=== PATIENT | male | born 1985 | race Caucasian/White ===

== ENCOUNTER 2019-06-09 22:54 | Emergency (ER) | payer BC ==
--- NOTE | 2019-06-09 23:00 | ED Physician Documentation ---
PD HPI HEENT - Stated complaint Stated Complaint: FB IN EAR/INSECT - History obtained from History obtained from: Patient - History of Present Illness Timing - onset: Today (just shortly [employer]. He was lying in bed and had a moth fly into ear. It is buzzing around and bothering eardrum. He tried to irrigate ear at home, but the bug continued to be in canal and fluttering.) Timing - details: Abrupt onset, Still present Location: Right ear Worsens: Position Associated symptoms: No: Congestion, Rhinorrhea, Facial swelling Similar symptoms before: Has not had sx before Review of Systems Ears: denies: Loss of hearing Nose: denies: Rhinorrhea / runny nose, Congestion Throat: denies: Sore throat Neurologic: denies: Generalized weakness, Focal weakness, Numbness, Near syncope PD PAST MEDICAL HISTORY - Past Medical History HEENT: None - Allergies Allergies/Adverse Reactions: Allergies Allergy/AdvReac Type Severity Reaction Status Date / Time amoxicillin AdvReac Unknown Verified 06/09/19 23:02 PD ED PE NORMAL - Vitals Vital signs reviewed: Yes - General General: Alert and oriented X 3, Well developed/nourished - HEENT HEENT: Moist mucous membranes, Pharynx benign. No: Ears normal (left is okay. right ear canal with moth looking insect deep in canal. The canal tissue appears okay. ) Results - Vitals Vitals: Oxygen O2 Source Room air Procedures - FB removal FB location: Ear FB removal preparation: Other (drops of proparacaine in right ear canal to fill it up and kep there with pt on left side, until the but was not moving. Then blotted the fluid and was able to grab the moth with alligator forceps without problems. No injury to the canal seen. TM mild erythema.) Departure - Departure Disposition: 01 Home, Self Care Clinical Impression: Ear foreign body Condition: Stable Record reviewed to determine appropriate education?: Yes Instructions: ED Foreign Body Ear Canal Follow-Up: Chaparro Kwok DO [Primary Care Provider] - Comments: You should be feeling okay with may be some slight irritation of the ear and decreased hearing for a day or so just from irritation of the eardrum. Recheck if not fully improved over a day or 2 or if any signs of infection develop such as drainage or redness. Discharge Date/Time: 06/09/19 23:43
[2019-06-09 23:02] VITALS: BP 134/74
== END 2019-06-09 23:43 | disposition home or self-care (01) ==
LOC: ED 22:54
DX: T16.1XXA Foreign body in right ear, initial encounter (principal); X58.XXXA Exposure to other specified factors, initial encounter
CPT/HCPCS: 69200; 99282

== ENCOUNTER 2024-07-23 07:42 | Outpatient (CLI) | payer BC ==
[2024-07-23 12:26] LABS: BASOPHILS % (AUTO) 0.8 %; EOSINOPHILS # (AUTO) 0.1 10^3/uL (0.0-0.7); EOSINOPHILS % (AUTO) 3.8 %; HCT - HEMATOCRIT 42.8 % (42.0-52.0); HGB - HEMOGLOBIN 14.8 g/dL (14.0-18.0); LYMPHOCYTES # (AUTO) 0.9 10^3/uL (1.5-3.5); LYMPHOCYTES % (AUTO) 37.4 %; MEAN CORPUSCULAR HEMOGLOBIN 33.9 pg (27.0-31.0); MEAN CORPUSCULAR HGB CONC 34.6 g/dL (32.0-36.0); MEAN CORPUSCULAR VOLUME 97.9 fL (80.0-94.0); MEAN PLATELET VOLUME 9.2 fL (7.4-11.4); MONOCYTES # (AUTO) 0.3 10^3/uL (0.0-1.0); MONOCYTES % (AUTO) 11.3 %; NEUTROPHILS # (AUTO) 1.1 10^3/uL (1.5-6.6); NEUTROPHILS % (AUTO) 46.7 %; PLT - PLATELET COUNT 209 10^3/uL (130-450); RED BLOOD COUNT 4.37 10^6/uL (4.70-6.10); RED CELL DISTRIBUTION WIDTH 11.6 % (12.0-15.0); WHITE BLOOD COUNT 2.4 x10^3/uL (4.8-10.8)
[2024-07-23 12:29] LABS: SLIDE REVIEW? Indicated
[2024-07-23 12:30] LABS: ESTIMATED AVERAGE GLUCOSE 88 mg/dL (70-100); HEMOGLOBIN A1c% 4.7 % (4.27-6.07)
[2024-07-23 12:42] LABS: PLATELET ESTIMATE, MANUAL NORMAL (130-450,000) (NORMAL); PLATELET MORPHOLOGY NORMAL APPEARANCE (NORMAL); RBC MORPHOLOGY (MULTIPLE) NORMAL APPEARANCE (NORMAL)
[2024-07-23 13:02] LABS: ALBUMIN 4.2 g/dL (3.2-5.5); ALBUMIN/GLOBULIN RATIO 1.8 (1.0-2.2); ALKALINE PHOSPHATASE 49 IU/L (42-121); ALT ALANINE AMINOTRANSFERASE 25 IU/L (10-60); AST ASPARTATE AMINOTRANSFERASE 29 IU/L (10-42); BILIRUBIN,TOTAL 0.9 mg/dL (0.2-1.0); BUN - BLOOD UREA NITROGEN 11 mg/dL (6-20); CALCIUM 9.2 mg/dL (8.5-10.3); CARBON DIOXIDE - CO2 29 mmol/L (21-32); CHLORIDE 105 mmol/L (101-111); CHOLESTEROL 168 mg/dL; CREATININE 0.8 mg/dL (0.6-1.3); GFR - MDRD 107 (>89); GLUCOSE 87 mg/dL (74-104); HDL CHOLESTEROL 83 mg/dL; LDL CHOLESTEROL,CALCULATED 43 mg/dL; LDL/HDL RATIO 0.5 (<3.6); POTASSIUM 3.9 mmol/L (3.5-4.5); SODIUM 141 mmol/L (135-145); TOTAL PROTEIN 6.5 g/dL (6.4-8.9); TRIGLYCERIDES 212 mg/dL; VLDL CHOLESTEROL 42 mg/dL
[2024-07-23 13:03] LABS: THYROID STIMULATING HORMONE 1.26 uIU/mL (0.34-5.60)
== END 2024-07-23 07:43 | disposition home or self-care (01) ==
LOC: LAB.N 07:42
PROVIDERS: ATTEND Physician Assistant
DX: R35.89 Other polyuria (principal); R35.1 Nocturia; R68.82 Decreased libido; Z13.9 Encounter for screening, unspecified
CPT/HCPCS: 36415; 80053; 80061; 83036; 83721; 84153; 84403; 84443; 85025

== ENCOUNTER 2024-07-23 07:47 | Outpatient (CLI) | payer BC ==
--- NOTE | 2024-07-23 18:36 | XRAY Report ---
PROCEDURE: Chest 2V INDICATIONS: WHEEZING TECHNIQUE: 4 views of the chest were acquired. COMPARISON: None. FINDINGS: Surgical changes and devices: None. Lungs and pleura: No pleural effusions or pneumothorax. Bilateral perihilar and basilar bronchial wa ll thickening. No focal pulmonary consolidation. Mediastinum: Mediastinal contours appear normal. Heart size is normal. Bones and chest wall: No suspicious bony lesions. Overlying soft tissues appear unremarkable. IMPRESSION: Bilateral perihilar and basilar bronchial wall thickening suggestive of reactive airway disease and/o r viral pneumonia. No focal pulmonary consolidation. Reviewed by: Segundo Mitchell MD on 07/23/2024 5:34 PM AKDT Approved by: Segundo Mitchell MD on 07/23/2024 5:34 PM AKDT Station ID: [id number]
== END 2024-07-23 07:48 | disposition home or self-care (01) ==
LOC: DI.N 07:47
PROVIDERS: ATTEND Physician Assistant
DX: R06.2 Wheezing (principal); R91.8 Other nonspecific abnormal finding of lung field; R35.89 Other polyuria; R35.1 Nocturia; R68.82 Decreased libido; Z13.9 Encounter for screening, unspecified
CPT/HCPCS: 36415; 80053; 80061; 83036; 83721; 84153; 84403; 84443; 85025